=== PATIENT | female | born 1970 | race African-American/Black ===

== ENCOUNTER 2019-06-24 18:23 | Emergency (ER) | payer OTHER ==
[2019-06-24 18:32] VITALS: BMI 35.7
--- NOTE | 2019-06-24 19:09 | PDOC ---
History of Present Illness <Wagner Loyola - Last Filed: 06/24/19 21:05> - General History Source: Patient Exam Limitations: No Limitations - History of Present Illness Initial Comments: Linda Garcia is a 48 yo obese F w a hx of untreated self diagnosed HTN who presents to the ER stating her blood pressure has been elevated for two weeks but she came into the ER today because today she started to have a headache which was associated with dizziness described as lightheadedness. The patient states that she knows she has to goto a doctor and get medication for her blood pressure but she has not had an opportunity yet to make an appointment. Here in the ER her bp is elevated at 150/100 at bedside and the patient endorses a headache, neck pain, and mild lightheadedness. Patient denies having experienced any chest pain, SOB, difficulty breathing, back pain, flank pain, blurry vision, nausea, vomiting, or abdominal pain. LMP: December 2018 PCP: Mary Maravilla PSH: None reported Social Hx: Denies smoking, drinking, or other substance usage Allergies: NKA. NKDA <Erick Lopez - Last Filed: 06/24/19 22:08> - General Chief Complaint: Blood Pressure Problem Stated Complaint: DIZZINESS Time Seen by Provider: 06/24/19 18:59 Past History <Wagner Loyola - Last Filed: 06/24/19 21:05> - Past Medical History COPD: No - Psycho Social/Smoking Cessation Hx Smoking History: Never smoked <Erick Lopez - Last Filed: 06/24/19 22:08> - Past Medical History Allergies/Adverse Reactions: Allergies Allergy/AdvReac Type Severity Reaction Status Date / Time No Known Allergies Allergy Verified 06/24/19 18:32 Home Medications: Ambulatory Orders NK [No Known Home Medication] 06/24/19 Review of Systems - Review of Systems Able to Perform ROS?: Yes Comments:: CONSTITUTIONAL: Absent: fever, chills, diaphoresis, generalized weakness, malaise, loss of appetite HEENT: Absent: rhinorrhea, nasal congestion, throat pain, throat swelling, difficulty swallowing, mouth swelling, ear pain, eye pain, visual Changes CARDIOVASCULAR: Present: Lightheadedness Absent: chest pain, syncope, palpitations, irregular heart rate, peripheral edema RESPIRATORY: Absent: cough, shortness of breath, dyspnea with exertion, orthopnea, wheezing, stridor, hemoptysis GASTROINTESTINAL: Absent: abdominal pain, abdominal distension, nausea, vomiting, diarrhea, constipation, melena, hematochezia GENITOURINARY: Absent: dysuria, frequency, urgency, hesitancy, hematuria, flank pain, genital pain MUSCULOSKELETAL: Absent: myalgia, arthralgia, joint swelling SKIN: Absent: rash, itching, pallor HEMATOLOGIC/IMMUNOLOGIC: Absent: easy bleeding, easy bruising, lymphadenopathy, frequent infections ENDOCRINE: Absent: unexplained weight gain, unexplained weight loss, heat intolerance, cold intolerance NEUROLOGIC: Present: Headache, dizziness Absent: focal weakness or paresthesias, unsteady gait, seizure, mental status changes, bladder or bowel incontinence PSYCHIATRIC: Absent: anxiety, depression, suicidal or homicidal ideation, hallucinations. <Erick Lopez - Last Filed: 06/24/19 22:08> *Physical Exam - Vital Signs Last Vital Signs Temp Pulse Resp BP Pulse Ox 98.4 F 90 19 142/79 99 06/24/19 20:45 06/24/19 20:45 06/24/19 20:45 06/24/19 20:45 06/24/19 20:45 <NirWagner - Last Filed: 06/24/19 21:05> - Vital Signs Last Vital Signs Temp Pulse Resp BP Pulse Ox 98.5 F 93 H 18 175/98 H 99 06/24/19 18:29 06/24/19 18:29 06/24/19 18:29 06/24/19 18:29 06/24/19 18:29 - Physical Exam Comments: GENERAL: Well developed, well nourished. Awake and alert. No acute distress. HEENT: Normocephalic, atraumatic. PERRLA, EOMI. No conjunctival pallor. Sclera are non- icteric. Moist mucous membranes. Oropharynx is clear. NECK: Supple. Full ROM. No JVD. No lymphadenopathy. CARDIOVASCULAR: Regular rate and rhythm. No murmurs, rubs, or gallops. Distal pulses are 2+ and symmetric. PULMONARY: No evidence of respiratory distress. Lungs clear to auscultation bilaterally. No wheezing, rales or rhonchi. ABDOMINAL: Soft. Non-tender. Non-distended. No rebound or guarding. No organomegaly. Normoactive bowel sounds. MUSCULOSKELETAL Normal range of motion at all joints. No bony deformities or tenderness. No CVA tenderness. EXTREMITIES: No cyanosis. No clubbing. No edema. No calf tenderness. SKIN: Warm and dry. Normal capillary refill. No rashes. No jaundice. NEUROLOGICAL: Alert, awake, appropriate. Cranial nerves 2-12 intact. No deficits to light touch in face, upper extremities and lower extremities. No motor deficits in the in face, upper extremities and lower extremities. Normal speech. Gait is normal without ataxia. PSYCHIATRIC: Cooperative. Good eye contact. Appropriate mood and affect. <Erick Lopez - Last Filed: 06/24/19 22:08> ED Treatment Course - LABORATORY CBC & Chemistry Diagram: 06/24/19 19:38 06/24/19 19:38 - ADDITIONAL ORDERS Additional order review: Laboratory Results 06/24/19 10 19:38 19:38 Sodium 144 Potassium 4.4 Chloride 111 H Carbon Dioxide 26 Anion Gap 7 L BUN 9.5 Creatinine 0.8 Est GFR (CKD-EPI)AfAm 101.75 Est GFR (CKD-EPI)NonAf 87.79 Random Glucose 97 Calcium 8.8 Total Bilirubin 0.1 L AST 17 ALT 23 Alkaline Phosphatase 76 Troponin I < 0.02 B-Natriuretic Peptide 21.2 Total Protein 7.6 Albumin 3.7 06/24/19 19:38 RBC 5.12 MCV 66.2 L MCHC 30.0 L RDW 23.2 H Neutrophils % 57.5 Lymphocytes % 30.0 Monocytes % 6.8 Eosinophils % 4.6 H Basophils % 1.1 - Medications Given in the ED: ED Medications Discontinued Medications Generic Name Dose Route Start Last Admin Trade Name Anastacio PRN Reason Stop Dose Admin Acetaminophen 1,000 mg 06/24/19 19:12 06/24/19 19:43 Ofirmev Injection - IVPB 06/24/19 19:13 1,000 mg ONCE ONE Administration Diphenhydramine HCl 25 mg 06/24/19 19:12 06/24/19 19:43 Benadryl Injection - IVPUSH 06/24/19 19:13 25 mg ONCE ONE Administration Metoclopramide HCl 10 mg 06/24/19 19:12 06/24/19 19:43 Reglan Injection - IVPUSH 06/24/19 19:13 10 mg ONCE ONE Administration <Wagner Loyola - Last Filed: 06/24/19 21:05> - LABORATORY CBC & Chemistry Diagram: 06/24/19 19:38 06/24/19 19:38 - RADIOLOGY Radiograph Interpretation: Head CT: EXAM: HEAD CT WITHOUT CONTRAST HISTORY: Assess for intracranial hemorrhage. COMPARISON: None. FINDINGS: No evidence for acute intracranial hemorrhage or large vessel territory ischemia. No extra-axial fluid collection or hydrocephalus. No acute calvarial abnormalities. No obvious soft tissue abnormalities. IMPRESSION: No evidence for acute intracranial pathology. <Erick Lopez - Last Filed: 06/24/19 22:08> Medical Decision Making - Medical Decision Making Linda Garcia is a 48 yo obese F w a hx of untreated self diagnosed HTN who presents to the ER stating her blood pressure has been elevated for two weeks but she came into the ER today because today she started to have a headache which was associated with dizziness described as lightheadedness. The patient states that she knows she has to goto a doctor and get medication for her blood pressure but she has not had an opportunity yet to make an appointment. Here in the ER her bp is elevated at 150/100 at bedside and the patient endorses a headache, neck pain, and mild lightheadedness. Patient denies having experienced any chest pain, SOB, difficulty breathing, back pain, flank pain, blurry vision, nausea, vomiting, or abdominal pain. Vital Signs Temp Pulse Resp BP Pulse Ox 98.5 F 93 H 18 175/98 H 99 06/24/19 18:29 06/24/19 18:29 06/24/19 18:29 06/24/19 18:29 06/24/19 18:29 BP at bedside 150/100 DDx IBNLT: Hypertensive emergency vs urgency, CVA/TIA, Hypertensive nephropathy , other end organ damage Plan: Labs, EKG, CXR, Head CT, analgesia, re-assess. Labs: Mildly anemic, otherwise unremarkable. Trop negative. No ANNEL. EKG: Poor data quality, NS rate of 86, narrow complexes, ATUL, no ST elevations or depressions, TWI in V2, QTc 459 CXR: The mediastinum is not widened Head CT: Unremarkable Re-assessment: Patient's BP normalized without anti-hypertensive intervention Disposition: Will send her home with PCP fu and cards. <Erick Lopez - Last Filed: 06/24/19 22:08> Discharge <Wagner Loyola - Last Filed: 06/24/19 21:05> - Discharge Information Problems reviewed: Yes - Admission No <Erick Lopez - Last Filed: 06/24/19 22:08> - Discharge Information Clinical Impression/Diagnosis: Hypertensive urgency Condition: Improved Disposition: HOME - Follow up/Referral Referrals: Mary Olson MD [Non Staff, Medical] - Kwabena White MD [Staff Physician] - - Patient Discharge Instructions Patient Printed Discharge Instructions: DI for High Blood Pressure, How to Monitor Your Blood Pressure at Home Additional Instructions: You came into the ER with elevated blood pressure. We looked at your blood and found that you are anemic with a low hemoglobin of 10 but otherwise found no abnormalities. Please call up your primary care doctor in the next 3 days and schedule a follow up appointment to discuss your anemia and to start you on an anti- hypertensive drug regimen. Uncontrolled blood pressure can eventually lead to kidney disease, heart disease, other serious illness, disability, or even . We are also giving you a referral to a stone polisher. Please schedule an appointment in the next 7 to 10 days. Come back to the ER immediately if your pain worsens, you have a headache, weakness, chest pain, shortness of breath blurry vision, or any other new or worsening concerns. Thank you for coming to the [facility] ER. We hope you feel better soon! Print Language: SRI LANKAN
[2019-06-24] MEDS ORDERED: ACETAMINOPHEN 1000 MG/100 ML VIAL (NON FORMULARY) IVPB ONE (19:12)
[2019-06-24] MEDS ORDERED: METOCLOPRAMIDE HCL INJECTION 10 MG/2 ML VIAL IVPUSH ONE (19:12)
[2019-06-24] MEDS ORDERED: METOCLOPRAMIDE HCL INJECTION 10 MG/2 ML VIAL ONE (19:23)
[2019-06-24] MEDS ORDERED: ACETAMINOPHEN INJECTION 100 ML IVPB ONE (19:24)
[2019-06-24 19:52] LABS: BASO % 1.1 % (0-2.0); EOS % 4.6 % (0-4.5); HEMATOCRIT 33.9 % (32.4-45.2); HEMOGLOBIN 10.2 GM/dL (10.7-15.3); MEAN CELL VOLUME 66.2 fl (80-96); MONO % 6.8 % (3.8-10.2); NEUT % 57.5 % (42.8-82.8); RBC 5.12 M/mm3 (3.60-5.2); RDW 23.2 % (11.6-15.6)
[2019-06-24 19:58] LABS: MCH 19.8 pg (25.7-33.7)
[2019-06-24 20:17] LABS: ALBUMIN 3.7 g/dl (3.4-5.0); BILIRUBIN,TOTAL 0.1 mg/dL (0.2-1); BLOOD UREA NITROGEN 9.5 mg/dL (7-18); CALCIUM 8.8 mg/dL (8.5-10.1); CREATININE 0.8 mg/dL (0.55-1.3); POTASSIUM 4.4 mmol/L (3.5-5.1); TOT PROT 7.6 g/dl (6.4-8.2)
--- NOTE | 2019-06-24 20:45 | PDOC ---
Attending Attestation - Resident Resident Name: Erick Lopez - ED Attending Attestation I have performed the following: I have examined & evaluated the patient, The case was reviewed & discussed with the resident, I agree w/resident's findings & plan, Exceptions are as noted - HPI HPI: 06/24/19 20:41 48 F with no known PMH Presents to ED with elevated BP and headache. Pt states that her BP has been elevated for about 3 weeks. She first learned about it at an OB appointment when her BP was found to be in the 160s systolic. Pt did not follow up with her PMD at that time. Pt states that today, she developed a headache. Denies thunderclap. Denies worst headache of life. No neck stiffness/ pain. No F/C. Pt's sister, who is a nurse, checked her BP and found it to be 170s systolic and told her to come to the ED. Pt denies any CP/SOB. - Physicial Exam PE: 06/24/19 20:43 "GENERAL: Awake, alert, and fully oriented, in no acute distress. HEAD: No signs of trauma EYES: PERRLA, EOMI, sclera anicteric, conjunctiva clear ENT: Auricles normal inspection, hearing grossly normal, nares patent, oropharynx clear without exudates. Moist mucosa NECK: Nontender, no stepoffs, Normal ROM, supple, no lymphadenopathy, JVD, or masses LUNGS: Breath sounds equal, clear to auscultation bilaterally. No wheezes, and no crackles HEART: Regular rate and rhythm, normal S1 and S2, no murmurs, rubs or gallops ABDOMEN: Soft, nontender, normoactive bowel sounds. No guarding, no rebound. No masses EXTREMITIES: Normal range of motion, no edema. No clubbing or cyanosis. No cords, erythema, or tenderness NEUROLOGICAL: Cranial nerves II through XII intact. 5/5 strength and sensation in all extremities, Normal speech, normal gait, normal cerebellar function SKIN: Warm, Dry, normal turgor, no rashes or lesions noted. - Medical Decision Making 06/24/19 20:43 48 F with HTN and headache. Pt without any red flags for SAH/meningitis/ dissection. Normal neuro exam. Will check labs and CT head to r/o end organ damage. EKG with no acute ischemic changes. - Labs, trop - CT head - Recheck BP - Tylenolcaren 06/24/19 20:[address] head unremarkable Pt reassessed, headache now resolved BP rechecked - now 140/90 Pt to f/u with PMD in 48 hours. Pt is well appearing, with normal vitals. Clinically stable for DC at this time. I discussed the physical exam findings, ancillary test results and final diagnoses with the patient. I answered all of the patient's questions. The patient was satisfied with the care received and felt comfortable with the discharge plan and treatment plan. The patient agrees to follow up with the primary care physician within 24-72 hours.
[2019-06-24 20:46] VITALS: BP 142/79; PULSE 90; TEMP 98.4
[2019-06-24 21:02] LABS: ANISOCYTOSIS 2+; OVALOCYTE 1+; PLATELET ESTIMATE NORMAL
[2019-06-24 21:04] LABS: N-TERMINAL BNP 21.2 pg/ml (5-125)
[2019-06-24 21:09] LABS: MEAN PLT VOLUME 9.4 fl (7.5-11.1); PLATELET COUNT 235 K/MM3 (134-434)
--- NOTE | 2019-06-25 12:54 | EKG ---
Test Reason : Blood Pressure : / mmHG Vent. Rate : 086 BPM Atrial Rate : 086 BPM P-R Int : 176 ms QRS Dur : 074 ms QT Int : 384 ms P-R-T Axes : 058 048 040 degrees QTc Int : 459 ms POOR DATA QUALITY, INTERPRETATION MAY BE ADVERSELY AFFECTED NORMAL SINUS RHYTHM POSSIBLE LEFT ATRIAL ENLARGEMENT SEPTAL INFARCT , AGE UNDETERMINED ABNORMAL ECG NO PREVIOUS ECGS AVAILABLE Confirmed by DIOGO ROJAS MD ([id number]) on 06/25/2019 12:53:52 PM Referred By: Confirmed By:DIOGO ROJAS MD
== END 2019-06-24 22:14 | disposition home or self-care (01) ==
LOC: JER 18:23
PROC: 3E033NZ Introduction of Analgesics, Hypnotics, Sedatives into Peripheral Vein, Percutaneous Approach (ICD-10-PCS; principal; 2019-06-24)
PROC: 3E033GC Introduction of Other Therapeutic Substance into Peripheral Vein, Percutaneous Approach (ICD-10-PCS; 2019-06-24)
PROC: 3E033GC Introduction of Other Therapeutic Substance into Peripheral Vein, Percutaneous Approach (ICD-10-PCS; 2019-06-24)
DX: I16.0 Hypertensive urgency (principal); E66.9 Obesity, unspecified; Z68.35 Body mass index [BMI] 35.0-35.9, adult
CPT/HCPCS: 36415; 70450-TC; 71046-TC-FY; 80053; 83880; 84439; 84443; 84484; 85025; 93005; 93010; 96374; 96375; 99283-25; J0131

== ENCOUNTER 2021-11-02 02:48 | Observation (INO) | payer OTHER ==
[2021-11-02 04:36] LABS: HEMATOCRIT 24.3 % (32.4-45.2); HEMOGLOBIN 7.2 GM/dL (10.7-15.3); MCH 20.4 pg (25.7-33.7); MCHC 29.8 g/dl (32.0-36.0); MEAN CELL VOLUME 68.5 fl (80-96); MEAN PLT VOLUME 8.8 fl (7.5-11.1); PLATELET COUNT 282 10^3/uL (134-434); RBC 3.55 M/mm3 (3.60-5.2); RDW 24.5 % (11.6-15.6); WHITE BLOOD COUNT 13.7 K/mm3 (4.0-10.0)
[2021-11-02 04:59] LABS: CALCIUM 8.8 mg/dL (8.5-10.1)
[2021-11-02 05:00] LABS: ALBUMIN 3.3 g/dl (3.4-5.0); BLOOD UREA NITROGEN 6.8 mg/dL (7-18)
[2021-11-02 05:03] LABS: CREATININE 0.7 mg/dL (0.55-1.3)
[2021-11-02 05:04] LABS: BILIRUBIN,TOTAL 0.2 mg/dL (0.2-1); TOT PROT 7.6 g/dl (6.4-8.2)
[2021-11-02] MEDS ORDERED: POTASSIUM CHLORIDE TABS 20 MEQ TABLET.ER (FP) PO ONE ×2 (05:08→05:14)
[2021-11-02 05:51] LABS: EPI CELLS 25 /uL (0-25.1); HYALINE CASTS 3 /uL (0-3.1); URINE APPEARANCE CLOUDY; URINE BACTERIA 105 /uL (0-1359); URINE BILIRUBIN NEGATIVE (NEGATIVE); URINE COLOR RED; URINE GLUCOSE (UA) NEGATIVE (NEGATIVE); URINE KETONE TRACE (NEGATIVE); URINE LEUK ESTERASE 1+ (NEGATIVE); URINE NITRITE NEGATIVE (NEGATIVE); URINE PROTEIN 2+ (NEGATIVE); URINE RBC 15224 /uL (0-23.9); URINE WBC 55 /uL (0-25.8)
[2021-11-02] MEDS ORDERED: CEFTRIAXONE 1 GM in DEXTROSE 5%-WATER - 100 ML IVPB ONE (07:00)
[2021-11-02 07:33] LABS: ANISOCYTOSIS 2+; MACROCYTOSIS 0; TEAR DROP CELLS 2+
[2021-11-02] MEDS ORDERED: CEFTRIAXONE 1 GM/50 ML BAG ONE (09:24)
[2021-11-02 09:47] LABS: BASO % 0.3 % (0-2.0); EOS % 1.3 % (0-4.5); HEMATOCRIT 20.8 % (32.4-45.2); LYMPH % 12.2 % (8-40); MCH 20.7 pg (25.7-33.7); MCHC 30.4 g/dl (32.0-36.0); MEAN CELL VOLUME 68.2 fl (80-96); MEAN PLT VOLUME 8.9 fl (7.5-11.1); MONO % 6.7 % (3.8-10.2); NEUT % 79.5 % (42.8-82.8); PLATELET COUNT 214 10^3/uL (134-434); RBC 3.04 M/mm3 (3.60-5.2); RDW 24.9 % (11.6-15.6); WHITE BLOOD COUNT 11.3 K/mm3 (4.0-10.0)
[2021-11-02 09:55] LABS: HEMOGLOBIN 6.3 GM/dL (10.7-15.3)
[2021-11-02] MEDS ORDERED: ACETAMINOPHEN 325 MG TABLET (FP) PO ONE (10:33)
[2021-11-02] MEDS ORDERED: ACETAMINOPHEN 325 MG TABLET (FP) ONE (10:36)
[2021-11-02 18:08] LABS: MAGNESIUM 2.1 mg/dL (1.8-2.4)
[2021-11-02 20:39] LABS: HEMATOCRIT 23.4 % (32.4-45.2); HEMOGLOBIN 7.1 GM/dL (10.7-15.3); MCH 21.7 pg (25.7-33.7); MCHC 30.3 g/dl (32.0-36.0); MEAN CELL VOLUME 71.7 fl (80-96); MEAN PLT VOLUME 8.6 fl (7.5-11.1); PLATELET COUNT 243 10^3/uL (134-434); RBC 3.27 M/mm3 (3.60-5.2); RDW 26.3 % (11.6-15.6); WHITE BLOOD COUNT 12.5 K/mm3 (4.0-10.0)
[2021-11-02] MEDS: ACETAMINOPHEN 325 MG TABLET (FP) PO PRN (22:28)
[2021-11-03 00:13] VITALS: BMI 38.7
[2021-11-03] MEDS: FERROUS SO4 325 MG TABLET (FP) PO SCH ×2 (02:19→09:55)
[2021-11-03] MEDS ORDERED: SODIUM CHLORIDE 1,000 ML IV SCH (08:30)
[2021-11-03] MEDS: ACETAMINOPHEN 325 MG TABLET (FP) PO PRN (10:00)
[2021-11-03] MEDS: POTASSIUM CHLORIDE 20 MEQ in SODIUM CHLORIDE 1,000 ML IV SCH ×3 (10:02→22:00)
[2021-11-03] MEDS ORDERED: ACETAMINOPHEN 1000 MG/100 ML BAG IVPB ONE (12:10)
[2021-11-03] MEDS ORDERED: ACETAMINOPHEN 500 MG TABLET (FP) PO ONE (12:28)
[2021-11-03] MEDS ORDERED: ACETAMINOPHEN 325 MG TABLET (FP) PO PRN (12:32)
[2021-11-03 12:41] LABS: HEMATOCRIT 22.9 % (32.4-45.2); MCH 21.8 pg (25.7-33.7); MCHC 30.7 g/dl (32.0-36.0); MEAN CELL VOLUME 70.9 fl (80-96); MEAN PLT VOLUME 8.7 fl (7.5-11.1); PLATELET COUNT 270 10^3/uL (134-434); RBC 3.24 M/mm3 (3.60-5.2); RDW 25.5 % (11.6-15.6); WHITE BLOOD COUNT 12.3 K/mm3 (4.0-10.0)
[2021-11-03] MEDS ORDERED: POTASSIUM CHLORIDE TABS 20 MEQ TABLET.ER (FP) PO ONE (13:43)
[2021-11-03 21:31] LABS: CALCIUM 8.3 mg/dL (8.5-10.1)
[2021-11-03 21:32] LABS: BLOOD UREA NITROGEN 7.9 mg/dL (7-18)
[2021-11-03 21:35] LABS: CREATININE 0.7 mg/dL (0.55-1.3)
[2021-11-03] MEDS: ACETAMINOPHEN 500 MG TABLET (FP) PO PRN (22:46)
[2021-11-04 07:31] VITALS: BP 103/52; PULSE 85; TEMP 98.1
[2021-11-04] MEDS ORDERED: IRON SUCROSE INJECTION 100 MG in SODIUM CHLORIDE 95 ML IVPB ONE (09:00)
[2021-11-04 09:41] LABS: BASO % 0.7 % (0-2.0); EOS % 1.4 % (0-4.5); HEMATOCRIT 23.8 % (32.4-45.2); HEMOGLOBIN 7.1 GM/dL (10.7-15.3); LYMPH % 10.8 % (8-40); MCH 21.6 pg (25.7-33.7); MEAN CELL VOLUME 71.9 fl (80-96); MEAN PLT VOLUME 8.1 fl (7.5-11.1); MONO % 4.6 % (3.8-10.2); NEUT % 82.5 % (42.8-82.8); PLATELET COUNT 341 10^3/uL (134-434); RDW 25.4 % (11.6-15.6); WHITE BLOOD COUNT 12.9 K/mm3 (4.0-10.0)
[2021-11-04 09:58] LABS: CALCIUM 8.9 mg/dL (8.5-10.1)
[2021-11-04 09:59] LABS: BLOOD UREA NITROGEN 5.9 mg/dL (7-18)
[2021-11-04] MEDS ORDERED: MEGESTROL ACETATE 40 MG TABLET PO SCH (10:00)
[2021-11-04 10:01] LABS: MAGNESIUM 2.3 mg/dL (1.8-2.4)
[2021-11-04 10:02] LABS: CREATININE 0.6 mg/dL (0.55-1.3); PHOSPHOROUS 3.2 mg/dL (2.5-4.9)
[2021-11-04] MEDS: POTASSIUM CHLORIDE 20 MEQ in SODIUM CHLORIDE 1,000 ML IV SCH (10:46)
[2021-11-04] MEDS: FERROUS SO4 325 MG TABLET (FP) PO SCH (10:46)
[2021-11-04] MEDS: ACETAMINOPHEN 500 MG TABLET (FP) PO PRN (10:56)
== END 2021-11-04 13:40 | disposition home or self-care (01) ==
LOC: JER 02:48 → JERBED 13:44 → J8W 20:11
PROVIDERS: ADMIT Internal Medicine; ATTEND Internal Medicine
PROC: 3E03329 Introduction of Other Anti-infective into Peripheral Vein, Percutaneous Approach (ICD-10-PCS; principal; 2021-11-02)
PROC: 3E033GC Introduction of Other Therapeutic Substance into Peripheral Vein, Percutaneous Approach (ICD-10-PCS; 2021-11-02)
DX: N92.1 Excessive and frequent menstruation with irregular cycle (principal); N80.0 Endometriosis of uterus; E87.6 Hypokalemia; D25.9 Leiomyoma of uterus, unspecified; R19.00 Intra-abdominal and pelvic swelling, mass and lump, unspecified site; D50.0 Iron deficiency anemia secondary to blood loss (chronic); I16.0 Hypertensive urgency; E66.8 Other obesity; Z68.38 Body mass index [BMI] 38.0-38.9, adult
CPT/HCPCS: 36415; 36430; 36511; 76830-TC; 80048; 80053; 81003; 82728; 83540; 83550; 83735; 84100; 84132; 84703; 85025; 85027; 85730; 86850; 86900; 86901; 86922; 96365; 96367; 99285-25; C9803; G0378; J1756; J8999; P9038; P9058; U0003; U0005

== ENCOUNTER 2024-05-21 12:18 | Emergency (ER) | payer OTHER ==
[2024-05-21 12:42] VITALS: BP 149/85; PULSE 84; RESP 16; TEMP 99.3; BMI 37.5
[2024-05-21 14:21] LABS: PH,URINE 6.5 (5.0-8.0); URINE APPEARANCE CLEAR; URINE BILIRUBIN NEGATIVE (NEGATIVE); URINE COLOR YELLOW; URINE GLUCOSE (UA) NEGATIVE (NEGATIVE); URINE KETONE NEGATIVE (NEGATIVE); URINE LEUK ESTERASE NEGATIVE (NEGATIVE); URINE NITRITE NEGATIVE (NEGATIVE); URINE PROTEIN NEGATIVE (NEGATIVE); URINE UROBILINOGEN 0.2 mg/dL (0.2-1.0)
[2024-05-21] MEDS ORDERED: IBUPROFEN 600 MG TABLET (FP) PO ONE (14:30)
[2024-05-21] MEDS ORDERED: ACETAMINOPHEN 500 MG TABLET (FP) ONE (14:31)
[2024-05-21] MEDS ORDERED: LIDOCAINE 4% PATCH TP ONE (14:32)
[2024-05-21] MEDS: IBUPROFEN 600 MG TABLET (FP) PO ONE (14:36)
[2024-05-21] MEDS: ACETAMINOPHEN 500 MG TABLET (FP) PO ONE (14:36)
[2024-05-21] MEDS: LIDOCAINE 4% PATCH TP ONE (14:36)
[2024-05-21] MEDS ORDERED: LIDOCAINE PATCH REMOVAL MC SCH (22:00)
== END 2024-05-21 14:38 | disposition home or self-care (01) ==
LOC: JERFT 12:18
DX: M54.50 Low back pain, unspecified (principal)
CPT/HCPCS: 81003; 84703; 87086; 99283-25